=== PATIENT | male | born 1960 | race Caucasian/White ===

== ENCOUNTER → 2016-11-28 | Day surgery (SDC) | payer OTHER ==
[~2016-11-28] VITALS: Ht 167.6 cm; Wt 79.8 kg
[~2016-11-28] MED LIST: ATRV10T PO; IBUP200C PO; MULT-1018 PO; OMEG-38 PO; Sodium Chloride LOK Flush 10 mL Syringe IV PRN; fentaNYL-PF 50 mCg/mL 2 mL Inj IVPUSH PRN
[2016-11-28 07:34] VITALS: BP 131/74; PULSE 68; RESP 16; O2SAT 98
[2016-11-28] MEDS: 0.9% Sodium Chloride 1,000 ML IV SCH ×2 (07:39→08:11)
[2016-11-28 08:27] VITALS: BP 102/65; PULSE 58; RESP 16; O2SAT 95
[2016-11-28 08:37] VITALS: BP 102/58; PULSE 56; RESP 16; O2SAT 95
[2016-11-28 08:47] VITALS: BP 101/68; PULSE 70; RESP 16; O2SAT 94
--- NOTE | 2016-11-28 09:26 | ENDO ---
[address] [address] ENDOSCOPY PROCEDURE PATIENT: NANCY MCKEON : 1960 MR#: [id number] ADMIT: 11/28/2016 JOB ID: [id number] DATE: 11/28/2016 PROCEDURE: Colonoscopy. INDICATIONS: Screening. The patient's ASA classification is 1. Mallampati score is 2. MEDICATIONS: 1. Versed 5 mg. 2. Fentanyl 100 mcg. INSTRUMENT USED: PCF H 180 AL. PREPARATION QUALITY: Was good. PROCEDURE DETAILS: After informed consent was obtained, the patient was brought into the GI suite, where he was placed on oxygen via nasal cannula and monitored with continuous pulse oximeter, telemetry and blood pressure monitoring. A time-out was performed. Then, he was placed in the left lateral decubitus position and medications were administered for sedation. Digital rectal examination was performed and was unremarkable. The colonoscope was then inserted into the rectum and advanced under direct visualization to the cecum, which was identified by the presence of the ileocecal valve and appendiceal orifice. Once the cecum was reached, colonoscope was withdrawn back into the rectum as the mucosa and lumen were examined. In the rectum, retroflexion was performed. Following retroflexion, remaining air in the rectum was suctioned, and procedure was completed. FINDINGS: In the rectum, there was an approximately 4 mm sessile polyp that was removed with a cold snare. IMPRESSION: Rectal polyp. Otherwise normal examination to cecum. RECOMMENDATIONS: Repeat colonoscopy pending polyp pathology results. COMPLICATIONS: None. ESTIMATED BLOOD LOSS: Less than 5 mL.
--- NOTE | 2016-12-02 11:59 | PATH ---
SURGICAL PATHOLOGY Attending Physician:Jhoana Lindo CASE STATUS: Signed Out PATIENT NAME: NANCY MCKEON PID: [id number] : 1960 DATE COLLECTED:11/28/2016 19:23 SPECIMEN: Rectum, Biopsy CLINICAL HISTORY: 1). RECTAL POLYP BIOPSY FINAL DIAGNOSIS: Rectum, Polyp, Biopsy: Hyperplastic polyp. ICD10: K62.1 GROSS DESCRIPTION: The specimen is received in formalin, labeled with the patient's name, sublabeled as rectal polyp, and consists of a fragment of orantes-white glistening semitranslucent tissue (0.4 x 0.3 x 0.1 cm). Section code: (A) tissue. Specimen entirely submitted. 11/29/16 ICD-9 CODES: CPT CODES: 1: 05128 Electronically Signed Out Ila Longoria MD [facility] [address], [place] [address] Technical component performed at [facility], [address] [place] [address] Ave[address], [place], [address]
== END | disposition home or self-care (01) ==
LOC: END 00:03
PROVIDERS: ATTEND Internal Medicine Gastroenterology
DX: Z12.11 Encounter for screening for malignant neoplasm of colon (principal); K62.1 Rectal polyp; E78.5 Hyperlipidemia, unspecified
CPT/HCPCS: 45385; 99153; G0500; J2250; J3010; J7030